=== PATIENT | male | born 1975 | race Caucasian/White ===

== ENCOUNTER 2020-10-12 19:45 | Emergency (ER) | payer BC ==
[~2020-10-12] VITALS: Ht 175.3 cm; Wt 81.6 kg
[2020-10-12 19:48] VITALS: BP 170/105
--- NOTE | 2020-10-12 19:50 | NUR ---
biba to RAFAEL soto.
--- NOTE | 2020-10-12 20:03 | NUR ---
NUVIA RUBIO AT BEDSIDE FOR MEDICAL EVALUATION.
--- NOTE | 2020-10-12 20:14 | NUR ---
tO ed BED 12
--- NOTE | 2020-10-12 20:20 | NUR ---
44 Y/O MALE BIBA C/O HIGH BLOOD PRESSURE. PT IS STAYING AT A REHAB FACILITY AND STATES HE IS 15 DAYS CLEAN FROM ALCOHOL AND METH USE. PT STATES HE HAS NEVER HAD HIGH BLOOD PRESSURE BEFORE BUT HE STARTED GETTING DIZZY AND FEELING WEIRD AROUND 1800 TODAY. PT STATES HE JUST STARTED WORKING OUT AND IS NOT SURE IF THAT HAS ANYTHING TO DO WITH IT. PT DENIES USE OF ANY MUSCLE ENHANCEMENT. PT SECONDARY C/O PRESSURE IN CHEST 8/10 ON PAIN SCALE. PT STATES HE FEELS ANXIOUS AT THIS TIME. PT RR EVEN AND UNLABORED. S1 S2 NOTED. A/O X4. SKIN PINK WARM AND INTACT. OBSERVED RASH ON UPPER CHEST. PT STATES HE USED A NEW LOTION TODAY. PT RESTING IN BED, LOCKED AND IN LOWEST POSITION, HOB ELEVATED, SIDE RAIL X1. 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 ERMD MADE AWARE OF PT STATUS. pmhx: FAM HX HTN, ETOH, substance abuse. nkda
[2020-10-12] MEDS ORDERED: diphenhydrAMINE 50 MG CAP PO ONE (20:40)
[2020-10-12] MEDS ORDERED: ASPIRIN 325 MG TAB PO ONE (20:40)
[2020-10-12 21:25] LABS: BASOPHILS # (AUTO) 0.1 K/uL (0.00-0.22); BASOPHILS % (AUTO) 0.8 % (0.0-2.0); EOSINOPHILS # (AUTO) 0.2 K/uL (0-0.4); HEMOGLOBIN 14.2 g/dL (12.0-18.0); LYMPHOCYTES # (AUTO) 1.4 K/uL (2.0-11.5); LYMPHOCYTES % (AUTO) 16.9 % (20.5-51.1); MEAN CORPUSCULAR HEMOGLOBIN 32 pg (27-31); MEAN CORPUSCULAR HGB CONC 34 g/dL (33-37); MEAN CORPUSCULAR VOLUME 93.3 fL (80-94); MONOCYTES # (AUTO) 0.8 K/uL (0.8-1.0); MONOCYTES % (AUTO) 9.1 % (1.7-9.3); NEUTROPHILS % (AUTO) 71.2 % (42.2-75.2); PLATELET COUNT (AUTO) 340 K/uL (140-450); RED CELL DISTRIBUTION WIDTH 13.1 % (11.6-13.7); WHITE BLOOD COUNT (AUTO) 8.4 K/uL (4.8-10.8)
[2020-10-12] MEDS ORDERED: amLODIPine 5 MG TAB PO ONE (21:25)
[2020-10-12 21:31] LABS: ANION GAP 10.8 (8-16); CARBON DIOXIDE 27.9 mmol/L (21-32); POTASSIUM 3.7 mmol/L (3.5-5.1)
--- NOTE | 2020-10-12 22:14 | NUR ---
NUVIA Whalen made aware of pt decreased BP , 134/90 mmHg, 30 mins after medication administration.
--- NOTE | 2020-10-12 22:26 | NUR ---
pt ambulated to restroom w/ steady gait.
[2020-10-12 23:25] VITALS: BP 134/90
--- NOTE | 2020-10-12 23:25 | NUR ---
Patient discharged with v/s stable. Written and verbal after care instructions given and explained. Patient alert, oriented and verbalized understanding of instructions. Ambulatory with steady gait. All questions addressed prior to discharge. ID band removed. Patient advised to follow up with PMD. Rx of AMLODIPINE given. Patient educated on indication of medication including possible reaction and side effects. Opportunity to ask questions provided and answered.
== END 2020-10-12 23:25 | disposition home or self-care (01) ==
LOC: MED 19:45
DX: L50.9 Urticaria, unspecified (principal); R07.89 Other chest pain; I10 Essential (primary) hypertension
CPT/HCPCS: 36415; 71045; 80048; 84484; 85025; 93005; 99285; Q0163